=== PATIENT | male | born 1965 | race Caucasian/White ===

== ENCOUNTER 2017-05-31 13:23 | Inpatient (IN) | payer OTHER ==
[~2017-05-31] VITALS: Ht 188 cm; Wt 109.5 kg
[~2017-05-31 13:23] MED LIST: BAY PO
[2017-05-31 13:34] VITALS: Ht 188 cm; Wt 109.5 kg
[2017-05-31 15:43] LABS: BASOPHIL % 0.1 % (0-2); PLATELET COUNT 170 x10^3mcL (130-400); RED CELL DISTRIBUTION WIDTH 14.4 % (11.5-14.5)
[2017-05-31 15:53] LABS: CALCIUM 8.1 mg/dL (8.5-10.1); CARBON DIOXIDE 27.8 mmol/L (21-32); CHLORIDE SERUM 100 mmol/L (98-107); CREATININE SERUM 1.2 mg/dL (0.7-1.3); GFR1 > 60 mL/min; GLUCOSE SERUM 116 mg/dL (74-106); POTASSIUM SERUM 3.7 mmol/L (3.5-5.1); SODIUM SERUM 136 mmol/L (136-145)
[2017-05-31 16:05] LABS: ALBUMIN 3.5 g/dL (3.4-5.0); ALKALINE PHOSPHATASE 74 U/L (46-116); ALT/SGPT 80 U/L (16-63); AST/SGOT 36 U/L (15-37); TOTAL PROTEIN, SERUM 7.2 g/dL (6.4-8.2)
[2017-05-31 16:09] LABS: CK-MB 1.5 ng/mL (0-3.6)
[2017-05-31 16:54] LABS: CHOLESTEROL/HDL RATIO 3.6; MAGNESIUM 1.8 mg/dL (1.8-2.4); PHOSPHOROUS 2.8 mg/dL (2.5-4.9)
[2017-05-31 16:56] LABS: T3 TOTAL 0.78 ng/mL
[2017-05-31 16:58] LABS: FREE T4 0.93 ng/dL (0.76-1.46); FREE THYROXINE INDEX 2.1 ug/dL (1.4-4.5); T4(THYROXINE) 6.3 ug/dL (4.7-13.3)
[2017-05-31 17:09] VITALS: BP 130/75
[2017-05-31 17:47] VITALS: BP 118/75
[2017-05-31 19:20] VITALS: BP 129/79
[2017-06-01 05:40] VITALS: BP 117/84
[2017-06-01 06:26] LABS: CALCIUM 8.8 mg/dL (8.5-10.1); CARBON DIOXIDE 27.3 mmol/L (21-32); CHLORIDE SERUM 102 mmol/L (98-107); CREATININE SERUM 0.9 mg/dL (0.7-1.3); GFR1 > 60 mL/min; GLUCOSE SERUM 168 mg/dL (74-106); POTASSIUM SERUM 4.1 mmol/L (3.5-5.1); SODIUM SERUM 137 mmol/L (136-145)
[2017-06-01 08:00] VITALS: BP 115/77
[2017-06-01 08:11] LABS: BASOPHIL % 0 % (0-2); PLATELET COUNT 188 x10^3mcL (130-400); RED CELL DISTRIBUTION WIDTH 14.3 % (11.5-14.5)
[2017-06-01 12:57] VITALS: BP 125/74
[2017-06-01 14:54] LABS: microscopic required? NO
[2017-06-01 15:05] LABS: UA SPECIFIC GRAVITY 1.015 (1.005-1.035); urine erythrocyte NEGATIVE (NEGATIVE)
[2017-06-01 15:14] LABS: AMPHETAMINE QUAL UR NONE DETECTED (NEG <=1000)
[2017-06-01 17:11] VITALS: BP 116/76
[2017-06-01 19:20] VITALS: BP 139/83
[2017-06-02 05:23] VITALS: BP 138/56
[2017-06-02 06:38] LABS: CALCIUM 8.9 mg/dL (8.5-10.1); CARBON DIOXIDE 26.1 mmol/L (21-32); CHLORIDE SERUM 107 mmol/L (98-107); CREATININE SERUM 0.8 mg/dL (0.7-1.3); GFR1 > 60 mL/min; GLUCOSE SERUM 154 mg/dL (74-106); POTASSIUM SERUM 4.3 mmol/L (3.5-5.1); SODIUM SERUM 142 mmol/L (136-145)
[2017-06-02 06:59] LABS: PLATELET COUNT 200 x10^3mcL (130-400)
[2017-06-02 07:07] LABS: RED CELL DISTRIBUTION WIDTH 14.7 % (11.5-14.5)
[2017-06-02 08:00] VITALS: BP 125/86
[2017-06-02 11:24] LABS: BAND NEUTROPHIL 15 % (0-10); BASOPHIL 0 % (0-2); MONOCYTE 4 % (0-7); SEGMENTED NEUTROPHILS 73 % (37-75)
[2017-06-02 11:25] LABS: PLATELET MORPHOLOGY PLATELETS NORMAL
[2017-06-02 14:22] VITALS: BP 136/80
[2017-06-02 16:11] LABS: PLATELET COUNT 199 x10^3mcL (130-400)
[2017-06-02 16:12] LABS: RED CELL DISTRIBUTION WIDTH 14.9 % (11.5-14.5)
[2017-06-02 17:14] LABS: BAND NEUTROPHIL 8 % (0-10); BASOPHIL 0 % (0-2); MONOCYTE 6 % (0-7); PLATELET MORPHOLOGY LARGE PLATELET SEEN; SEGMENTED NEUTROPHILS 84 % (37-75); rbc morphology (normal/abnorm) ABNORMAL (NORMAL)
[2017-06-02 17:42] VITALS: BP 132/89
[2017-06-02 21:04] VITALS: BP 154/96
[2017-06-02 21:14] VITALS: BP 122/70
[2017-06-03 05:42] VITALS: BP 147/82
[2017-06-03] MEDS ORDERED: PULMICORT180 MCG/Ac INH (07:29)
[2017-06-03] MEDS ORDERED: PROVENTIL0.09 MG/A1 INH (07:30)
[2017-06-03] MEDS ORDERED: LEVAQUIN500 M1 PO (07:31)
[2017-06-03] MEDS ORDERED: CLEOCIN HCL150 MG PO ×2 (07:32→09:41)
[2017-06-03] MEDS ORDERED: LAC PO (07:33)
[2017-06-03 08:59] LABS: BASOPHIL % 0.3 % (0-2); PLATELET COUNT 215 x10^3mcL (130-400)
[2017-06-03 09:20] LABS: CARBON DIOXIDE 29.5 mmol/L (21-32); CHLORIDE SERUM 109 mmol/L (98-107); CREATININE SERUM 0.9 mg/dL (0.7-1.3); GFR1 > 60 mL/min; GLUCOSE SERUM 136 mg/dL (74-106); POTASSIUM SERUM 3.8 mmol/L (3.5-5.1); SODIUM SERUM 144 mmol/L (136-145)
[2017-06-03 09:52] VITALS: BP 126/83
[2017-06-03] MEDS ORDERED: MEDDP PO (09:58)
[2017-06-03 11:27] VITALS: BP 126/83
== END 2017-06-03 12:00 | disposition home or self-care (01) | DRG 193 ==
LOC: ED 13:23 → DU 16:25 → MU 06-03 10:51
PROVIDERS: Emergency Medicine; Family Medicine
DX: J18.9 Pneumonia, unspecified organism (principal); J96.00 Acute respiratory failure, unspecified whether with hypoxia or hypercapnia; N17.0 Acute kidney failure with tubular necrosis; J44.1 Chronic obstructive pulmonary disease with (acute) exacerbation; I16.0 Hypertensive urgency; I25.10 Atherosclerotic heart disease of native coronary artery without angina pectoris; E66.9 Obesity, unspecified; F17.210 Nicotine dependence, cigarettes, uncomplicated; Z89.022 Acquired absence of left finger(s); I25.2 Old myocardial infarction; Z83.1 Family history of other infectious and parasitic diseases
CPT/HCPCS: 36600; 83880; 84439; 87804; 94150; J0696; J1885; J1956; J2543; J2920; J2930; J3490; J7030; J7512; J7620; Q0092; Q9967